=== PATIENT | male | born 1945 | race Caucasian/White ===

== ENCOUNTER 2018-01-25 10:30 | Day surgery (SDC) | payer MEDICARE ==
[2018-01-25] VITALS (11 sets, daily range): BP systolic 97–145; BP diastolic 40–90
[~2018-01-25] VITALS: Ht 180.3 cm; Wt 123.2 kg
[2018-01-25] MEDS ORDERED: normal saline 1000ml 1,000 ML IV SCH (10:50)
[2018-01-25] MEDS ORDERED: sod bicarbonate 150mEq in D5W 1,150 ML IV ONE (10:50)
[2018-01-25] MEDS ORDERED: diphenhydrAMINE 25mg capsule PO PRN (10:50)
[2018-01-25] MEDS ORDERED: FLO0.4C PO (11:00)
[2018-01-25] MEDS ORDERED: LIRA0.6P2 SUBCUT (11:00)
[2018-01-25] MEDS ORDERED: EMPA10TA PO (11:00)
[2018-01-25] MEDS ORDERED: ROSU5TAB PO (11:00)
[2018-01-25] MEDS ORDERED: APIX5TAB5 PO (11:00)
[2018-01-25] MEDS ORDERED: DILT240C10 PO (11:00)
[2018-01-25] MEDS ORDERED: LEVO88TA2 PO (11:00)
[2018-01-25] MEDS ORDERED: METF500T PO (11:00)
[2018-01-25] MEDS ORDERED: INSU100V9 SQ (11:00)
[2018-01-25] MEDS ORDERED: CARV-49 PO (11:00)
[2018-01-25] MEDS ORDERED: ACET-812 PO (11:00)
[2018-01-25] MEDS ORDERED: LISI-600 PO (11:00)
[2018-01-25 11:24] LABS: BASOPHILS % (AUTO) 0.3 % (0-1); EOSINOPHILS # (AUTO) 0.3 X10'3 (0-0.9); LYMPHOCYTES # (AUTO) 1.3 X10'3 (1.1-4.8); LYMPHOCYTES % (AUTO) 16.5 % (21-51); MEAN CORPUSCULAR HEMOGLOBIN 25.7 PG (27.0-31.0); MEAN CORPUSCULAR HGB CONC 31.7 % (33.0-36.5); MEAN CORPUSCULAR VOLUME 81.1 FL (78-98); MEAN PLATELET VOLUME 6.4 FL (7.4-10.4); MONOCYTES # (AUTO) 0.7 X10'3 (0-0.9); MONOCYTES % (AUTO) 8.9 % (2-12); NEUTROPHILS # (AUTO) 5.5 X10'3 (1.8-7.7); NEUTROPHILS % (AUTO) 70.3 % (42-75); PRE OP HEMATOCRIT 35.6 % (42.0-52.0); PRE OP HEMOGLOBIN 11.3 g/dL (14.0-17.9); PRE OP PLATELET COUNT 302 X10'3 (140-440); RED CELL DISTRIBUTION WIDTH 17.6 % (11.5-14.5)
[2018-01-25 11:34] LABS: ALBUMIN 3.5 G/DL (3.4-5.0); ANION GAP 8 (8-16); BLOOD UREA NITROGEN 24 MG/DL (7-18); BUN/CREATININE RATIO 20.2 (5.4-32.0); CALCIUM 9.5 MG/DL (8.5-10.1); CHLORIDE 104 MMOL/L (99-107); CREATININE 1.19 MG/DL (0.60-1.10); GLUCOSE 111 MG/DL (70-104); MAGNESIUM 2.1 MG/DL (1.5-2.4); POTASSIUM 4.4 MMOL/L (3.5-5.1); SODIUM 141 MMOL/L (135-145); TOTAL CARBON DIOXIDE 29.2 MMOL/L (24-32); eGFR 60 ML/MIN
[2018-01-25 11:37] LABS: INR 1.1 INR
[2018-01-25] MEDS ORDERED: midazolam 2 mg/2 ml injection ONE ×2 (11:55→14:01)
[2018-01-25] MEDS ORDERED: LIDOcaine 1% (10mg/ml)w/preservative injection 20ml MDV ONE (11:55)
[2018-01-25] MEDS ORDERED: iohexol 350 MG/ML 50ML vial IV ONE ×3 (11:55→13:08)
[2018-01-25] MEDS ORDERED: fentaNYL/PF 50MCG/1 ML 2ML syringe ONE ×2 (11:55→14:01)
[2018-01-25] MEDS ORDERED: iohexol 350MG/ML 100ml bottle IV ONE ×2 (11:56→13:17)
[2018-01-25] MEDS ORDERED: adenosine kit for FFR above 120KG-Cath lab only IV ONE ×2 (12:58→13:10)
[2018-01-25] MEDS ORDERED: heparin 1,000unit/ml 10ml vial 10 ML ONE (13:17)
[2018-01-25] MEDS ORDERED: clopidogrel 300mg tablet ONE (14:11)
[2018-01-25] MEDS ORDERED: furosemide 40mg/4ml inj ONE (14:20)
[2018-01-25] MEDS ORDERED: digoxin 250mcg/ml 2ml ampule IV ONE ×2 (14:55→15:57)
== END 2018-01-25 18:15 | disposition home or self-care (01) ==
LOC: SSTAY O 10:30
PROVIDERS: ATTEND Internal Medicine Cardiovascular Disease
DX: I25.10 Atherosclerotic heart disease of native coronary artery without angina pectoris (principal); I27.20 Pulmonary hypertension, unspecified; I48.0 Paroxysmal atrial fibrillation; I10 Essential (primary) hypertension; E78.5 Hyperlipidemia, unspecified; G47.33 Obstructive sleep apnea (adult) (pediatric); E66.9 Obesity, unspecified; I08.0 Rheumatic disorders of both mitral and aortic valves; I48.2 Chronic atrial fibrillation; E03.9 Hypothyroidism, unspecified; E11.42 Type 2 diabetes mellitus with diabetic polyneuropathy; Z68.37 Body mass index [BMI] 37.0-37.9, adult; Z86.69 Personal history of other diseases of the nervous system and sense organs; Z72.89 Other problems related to lifestyle; Z79.891 Long term (current) use of opiate analgesic; Z79.84 Long term (current) use of oral hypoglycemic drugs; Z90.79 Acquired absence of other genital organ(s); Z85.46 Personal history of malignant neoplasm of prostate; Z92.3 Personal history of irradiation; Z87.442 Personal history of urinary calculi; Z87.891 Personal history of nicotine dependence; Z79.4 Long term (current) use of insulin; Z79.01 Long term (current) use of anticoagulants; Z88.8 Allergy status to other drugs, medicaments and biological substances; Z79.899 Other long term (current) drug therapy; Z98.890 Other specified postprocedural states
CPT/HCPCS: 36415; 80048; 82948; 83735; 85025; 85610; 93005; 93460; 93571; 93572; 99152; 99153; A6257; C1760; C1769; C1874; C1887; C9600; J0153; J1160; J1644; J1940; J2001; J2250; J3010; J7030; Q0163; Q9967; A4620; C1725; C1894